=== PATIENT | female | born 1975 | race Caucasian/White ===

== ENCOUNTER 2022-08-07 10:01 | Outpatient (CLI) | payer BC, SELFPAY ==
--- NOTE | 2022-08-07 11:20 | CRLHL7_ITS ---
For Patients: As a result of the Century Cures Act, medical imaging exams and procedure reports are released immediately into your electronic medical record. You may view this report before your referring provider. If you have questions, please contact your health care provider. BILATERAL SCREENING MAMMOGRAM WITH COMPUTER-AIDED DETECTION AND TOMOSYNTHESIS TECHNIQUE: CC and MLO views were obtained. These mammographic images have been obtained using full-field digital technique. These mammographic images were interpreted with the benefit of computer-aided detection. Breast Tomosynthesis was used in this interpretation. COMPARISON FILM: 08/04/21, 06/21/20, 02/21/19. FINDINGS: The breasts are heterogeneously dense, which may obscure small masses IMPRESSION: There is no radiographic evidence for malignancy. ASSESSMENT: BI-RADS Category 1: Negative RECOMMENDATION: Routine screening mammogram in 1 year. A lay language report of this examination will be provided to the patient. Elvin Wilkerson M.D. Diagnostic Radiologist [email or web address] JUANCARLOS/Dictated by: Elvin Wilkerson MD @ 08/10/2022 10:59:00 AM (Electronically Signed)
== END 2022-08-07 10:02 | disposition home or self-care (01) ==
PROVIDERS: Visit Provider Registered Nurse
DX: Z12.31 Encounter for screening mammogram for malignant neoplasm of breast (principal); R92.2 Inconclusive mammogram
CPT/HCPCS: 77063; 77067; 80061

== ENCOUNTER 2023-08-27 07:38 | Outpatient (CLI) | payer BC, SELFPAY ==
--- NOTE | 2023-08-27 07:45 | CRLHL7_ITS ---
For Patients: As a result of the Century Cures Act, medical imaging exams and procedure reports are released immediately into your electronic medical record. You may view this report before your referring provider. If you have questions, please contact your health care provider. BILATERAL DIGITAL SCREENING MAMMOGRAM WITH TOMOSYNTHESIS AND COMPUTER-AIDED DETECTION CLINICAL HISTORY: Routine screening exam. COMPARISON: 08/07/2022, 08/04/2021, 06/21/2020, 02/21/2019. TECHNIQUE: Digital mammogram in CC and MLO projections including computer-aided detection (CAD). Tomosynthesis utilized. BREAST COMPOSITION: The breasts are heterogeneously dense, which may obscure small masses. FINDINGS: RIGHT Breast: Nodular density in the upper outer quadrant 8 cm from the nipple. LEFT Breast: No suspicious findings. IMPRESSION: RIGHT breast asymmetry/mass. RECOMMENDATIONS: Additional mammographic views of the RIGHT breast including 3D spot compression CC/MLO. RIGHT breast ultrasound may also be required. BI-RADS Category 0: Incomplete: Need Additional Imaging Evaluation and/or Prior Mammograms for Comparison [facility] will contact the patient for follow-up. A lay language report of this examination will be provided to the patient. Dictated by Elvin Wilkerson MD @ 08/27/2023 12:21:17 PM jj/Dictated by: Elvin Wilkerson MD @ 08/27/2023 12:21:00 PM (Electronically Signed)
== END 2023-08-27 07:39 | disposition home or self-care (01) ==
LOC: MAMMO 07:39
PROVIDERS: Visit Provider Physician Assistant
DX: Z12.31 Encounter for screening mammogram for malignant neoplasm of breast (principal); N63.10 Unspecified lump in the right breast, unspecified quadrant; R92.2 Inconclusive mammogram; Z01.419 Encounter for gynecological examination (general) (routine) without abnormal findings; E78.5 Hyperlipidemia, unspecified; R63.5 Abnormal weight gain; Z13.1 Encounter for screening for diabetes mellitus
CPT/HCPCS: 77063; 77067; 80061; 82947; 84443

== ENCOUNTER 2023-09-13 09:37 | Outpatient (CLI) | payer BC, SELFPAY ==
--- NOTE | 2023-09-13 09:45 | CRLHL7_ITS ---
For Patients: As a result of the Cures Act, medical imaging exams and procedure reports are released immediately into your electronic medical record. You may view this report before your referring provider. If you have questions, please contact your health care provider. DIGITAL DIAGNOSTIC RIGHT MAMMOGRAM USING TOMOSYNTHESIS AND COMPUTER-AIDED DETECTION RIGHT BREAST ULTRASOUND CLINICAL HISTORY: RIGHT breast mass/asymmetry. COMPARISON: 08/27/2023. TECHNIQUE: Digital RIGHT mammogram in two projections. Tomosynthesis and CAD utilized. Real-time ultrasound imaging of RIGHT breast with imaging documentation. Scanning was performed by both the technologist and the radiologist. BREAST COMPOSITION: There are areas of scattered fibroglandular density. FINDINGS: 3D spot compression CC/MLO RIGHT mammogram images submitted. Decreased conspicuity of ovoid density within the upper outer quadrant of the RIGHT breast. No architectural distortion. No suspicious calcifications. Targeted RIGHT breast ultrasound performed 10 o`clock 8 cm from the nipple performed. In this location, there is a simple anechoic circumscribed cyst measuring 6 millimeters. No suspicious findings. IMPRESSION: Benign cyst RIGHT breast 10 o`clock 8 cm from the nipple. No evidence of malignancy. RECOMMENDATIONS: Routine annual screening mammography. Results and recommendations discussed with the patient. BI-RADS Category 2: Benign A lay language report of this examination will be provided to the patient. Dictated by Elvin Wilkerson MD @ 09/13/2023 10:51:37 AM /Dictated by: Elvin Wilkerson MD @ 09/13/2023 10:51:00 AM (Electronically Signed)
--- NOTE | 2023-09-13 10:15 | CRLHL7_ITS ---
For Patients: As a result of the Cures Act, medical imaging exams and procedure reports are released immediately into your electronic medical record. You may view this report before your referring provider. If you have questions, please contact your health care provider. PLEASE SEE DIGITAL DIAGNOSTIC RIGHT MAMMOGRAM PERFORMED SAME DAY CRL:[email or web address] leos/Dictated by: Elvin Wilkerson MD @ 09/13/2023 10:51:00 AM (Electronically Signed)
== END 2023-09-13 09:38 | disposition home or self-care (01) ==
LOC: MAMMO 09:38
PROVIDERS: Visit Provider Physician Assistant
DX: N63.10 Unspecified lump in the right breast, unspecified quadrant (principal); N60.01 Solitary cyst of right breast; R92.8 Other abnormal and inconclusive findings on diagnostic imaging of breast
CPT/HCPCS: 76642; 77065; G0279

== ENCOUNTER 2024-08-07 09:30 | Outpatient (CLI) | payer BC, SELFPAY | END 2024-08-07 09:31 | disposition home or self-care (01) | LOC: NFLDREF 08-10 11:37 | PROVIDERS: Visit Provider Physician Assistant Medical | DX: N39.0 Urinary tract infection, site not specified (principal); N30.01 Acute cystitis with hematuria | CPT/HCPCS: 87086; 87186 ==

== ENCOUNTER 2024-11-02 14:37 | Outpatient (CLI) | payer BC, SELFPAY ==
--- NOTE | 2024-11-02 14:40 | CRLHL7_ITS ---
For Patients: As a result of the Century Cures Act, medical imaging exams and procedure reports are released immediately into your electronic medical record. You may view this report before your referring provider. If you have questions, please contact your health care provider. BILATERAL SCREENING MAMMOGRAM WITH COMPUTER-AIDED DETECTION AND TOMOSYNTHESIS TECHNIQUE: CC and MLO views were obtained. These mammographic images have been obtained using full-field digital technique. These mammographic images were interpreted with the benefit of computer-aided detection. Breast Tomosynthesis was used in this interpretation. COMPARISON FILM: 08/27/23, 08/07/22, 08/04/21. FINDINGS: There are scattered areas of fibroglandular density. IMPRESSION: There is no radiographic evidence for malignancy. ASSESSMENT: BI-RADS Category 1: Negative RECOMMENDATION: Routine screening mammogram in 1 year. A lay language report of this examination will be provided to the patient. Elvin Wilkerson M.D. Diagnostic Radiologist [email or web address] SP/Dictated by: Elvin Wilkerson MD @ 11/03/2024 10:21:00 AM (Electronically Signed)
== END 2024-11-02 14:38 | disposition home or self-care (01) ==
LOC: MAMMO 14:37
PROVIDERS: Visit Provider Physician Assistant
DX: Z12.31 Encounter for screening mammogram for malignant neoplasm of breast (principal)
CPT/HCPCS: 77063; 77067